=== PATIENT | male | born 1975 | race Caucasian/White ===

== ENCOUNTER 2022-03-29 14:02 | Emergency (ER) | payer BC, MEDICAID ==
[2022-03-29] MEDS ORDERED: Metoprolol Tartrate 25 MG Tab PO ONE (14:42)
== END 2022-03-29 17:04 | disposition home or self-care (01) ==
LOC: JP.ED 14:02
DX: R00.0 Tachycardia, unspecified (principal); I10 Essential (primary) hypertension; E11.9 Type 2 diabetes mellitus without complications; Z79.899 Other long term (current) drug therapy; Z72.0 Tobacco use; Z79.84 Long term (current) use of oral hypoglycemic drugs
CPT/HCPCS: 36415; 71045; 80053; 81001; 84443; 84484; 85025; 93005; 93010; 99282; 99285-25; A9270-GY